=== PATIENT | female | born 1965 | race Caucasian/White ===

== ENCOUNTER 2021-04-26 14:45 | Inpatient (IN) | payer MEDICAID ==
[~2021-04-26] VITALS: Ht 165.1 cm; Wt 81.7 kg
[2021-04-26] MEDS ORDERED: methylPREDNISolone SOD SUCC 125 MG/2 ML VL IV ONE (15:00)
[2021-04-26] MEDS ORDERED: ACETAMINOPHEN 325 MG TAB PO ONE (15:00)
[2021-04-26 15:44] LABS: Basophils # (auto) 0 10 ^3/uL (0-0.2); Basophils % (auto) 0.2 % (0.0-2.0); Eosinophils # (auto) 0 10 ^3/uL (0-0.8); Hematocrit 42.2 % (36.0-46.0); Hemoglobin 13.7 g/dL (12.2-16.2); Lymphocytes # (auto) 1.1 10 ^3/uL (0.4-5.4); Mean Corpuscular Hemoglobin 28.2 pg (28.0-32.0); Mean Corpuscular Hgb Conc. 32.4 g/dL (32.0-36.0); Mean Corpuscular Volume 87.1 fL (80.0-100.0); Monocytes # (auto) 0.4 10 ^3/uL (0-1.3); Monocytes % (auto) 4.2 % (0.0-12.0); Neutrophils % (auto) 82.6 % (37.0-80.0); Nucleated Red Blood Cells % 0.1 %; Red Blood Cells 4.85 10^6/uL (4.0-5.20); Red Cell Distribution Width 15.8 % (11.8-14.3); White Blood Cell 8.5 10^3/uL (4.4-10.8)
[2021-04-26 15:52] LABS: Calcium 8.2 mg/dL (8.5-10.1)
[2021-04-26 16:01] LABS: BUN/Creatinine Ratio 15.8; Bilirubin, Total 1.3 mg/dL (0.2-1.0); CRP High Sensitivity 9.82 mg/dL (< 0.3); Total Protein 8.1 g/dL (6.4-8.2)
[2021-04-26 16:09] LABS: Potassium 2.7 mmol/L (3.5-5.1)
[2021-04-26] MEDS ORDERED: POTASSIUM CHL 20 Meq TABLET PO ONE (16:15)
[2021-04-26] MEDS ORDERED: POTASSIUM CHL 20MEQ/100ML 100 ML IV ONE (16:15)
[2021-04-26] MEDS ORDERED: ONDANSETRON HCL 4 MG/2 ML VIAL IV PRN (17:30)
[2021-04-26] MEDS ORDERED: cefTRIAXone 1GM/50ML D5W 50 ML IV ONE (17:30)
[2021-04-26] MEDS ORDERED: NITROGLYCERIN 0.4 MG SL TAB SL PRN (17:30)
[2021-04-26] MEDS ORDERED: hydrALAZINE HCL 20 MG/ML VL IV PRN (17:30)
[2021-04-26] MEDS ORDERED: ACETAMINOPHEN 500 MG TAB PO PRN (17:30)
[2021-04-26] MEDS ORDERED: DEXTROSE (50%) 50ML SYRG IV PRN (17:30)
[2021-04-26] MEDS ORDERED: DOCUSATE CALCIUM 240 MG CAP PO PRN (17:30)
[2021-04-26] MEDS ORDERED: MORPHINE SULFATE INJECTION 2 MG/ML SYRG IV PRN (17:30)
[2021-04-26] MEDS: InsuLIN REG 1unit/0.01ml Soln (100units/ml) SC SCH ×2 (20:20→23:12)
[2021-04-26] MEDS: ACCU-CHEK COMFORT CURVE STRIP VI SCH ×2 (20:28→23:12)
[2021-04-26 20:39] LABS: Calcium 8.6 mg/dL (8.5-10.1); Potassium 3.2 mmol/L (3.5-5.1)
[2021-04-26 20:42] LABS: BUN/Creatinine Ratio 16.4
[2021-04-26 22:00] VITALS: BP 119/74
[2021-04-26] MEDS: BUDESONIDE (INHALATION) 180 MCG IH IN SCH (22:00)
[2021-04-26 22:22] VITALS: BP 119/74
[2021-04-26] MEDS: methylPREDNISolone SOD SUCC 125 MG/2 ML VL IV SCH (23:11)
[2021-04-26] MEDS: ENOXAPARIN SOD 40 MG/0.4 ML SYRINGE SC SCH (23:11)
[2021-04-27] VITALS (7 sets, daily range): BP systolic 102–132; BP diastolic 65–88
[2021-04-27] MEDS ORDERED: PNEUMOCOCCAL VACC POLYS 25 MCG/0.5 ML VIAL IM ONE (01:15)
[2021-04-27] MEDS: ACCU-CHEK COMFORT CURVE STRIP VI SCH ×5 (04:51→19:58)
[2021-04-27] MEDS: InsuLIN REG 1unit/0.01ml Soln (100units/ml) SC SCH ×5 (04:52→20:01)
[2021-04-27 05:55] LABS: Basophils # (auto) 0 10 ^3/uL (0-0.2); Eosinophils # (auto) 0 10 ^3/uL (0-0.8); Hematocrit 41.6 % (36.0-46.0); Hemoglobin 13.8 g/dL (12.2-16.2); Lymphocytes # (auto) 1.3 10 ^3/uL (0.4-5.4); Lymphocytes % (auto) 13.5 % (10.0-50.0); Mean Corpuscular Hgb Conc. 33.1 g/dL (32.0-36.0); Mean Corpuscular Volume 87.6 fL (80.0-100.0); Monocytes # (auto) 0.2 10 ^3/uL (0-1.3); Monocytes % (auto) 1.8 % (0.0-12.0); Neutrophils # (auto) 7.9 10 ^3/uL (1.6-8.6); Neutrophils % (auto) 84.7 % (37.0-80.0); Nucleated Red Blood Cells % 0.2 %; Red Blood Cells 4.75 10^6/uL (4.0-5.20); Red Cell Distribution Width 16.2 % (11.8-14.3); White Blood Cell 9.3 10^3/uL (4.4-10.8)
[2021-04-27 05:59] LABS: INR 1.11 (0.9-1.15)
[2021-04-27 06:04] LABS: Albumin 2.9 g/dL (3.4-5.0); Calcium 8.9 mg/dL (8.5-10.1); Magnesium 2.8 mg/dL (1.6-2.6); Potassium 3.2 mmol/L (3.5-5.1)
[2021-04-27 06:17] LABS: BUN/Creatinine Ratio 18.8; Bilirubin, Total 1.1 mg/dL (0.2-1.0); Total Protein 8.5 g/dL (6.4-8.2)
[2021-04-27 06:19] LABS: Thyroid Stimulating Hormone 0.32 uIU/mL (0.358-3.74)
[2021-04-27] MEDS: ZINC SULFATE 220mg CAP or TAB PO SCH (09:06)
[2021-04-27] MEDS: methylPREDNISolone SOD SUCC 125 MG/2 ML VL IV SCH ×2 (09:06→22:12)
[2021-04-27] MEDS: ASCORBIC ACID 1,000 MG TAB PO SCH (09:07)
[2021-04-27] MEDS: PANTOPRAZOLE 40 MG TAB PO SCH (09:07)
[2021-04-27] MEDS: ENOXAPARIN SOD 40 MG/0.4 ML SYRINGE SC SCH ×2 (09:07→22:12)
[2021-04-27] MEDS: CHOLECALCIFEROL (VITD3) 2,000 UNIT CAP/TAB PO SCH (09:07)
[2021-04-27] MEDS: ALBUTEROL SULF HFA 90MCG INH 200DOSE IN PRN (10:12)
[2021-04-27] MEDS: BUDESONIDE (INHALATION) 180 MCG IH IN SCH ×2 (10:12→21:05)
[2021-04-27] MEDS ORDERED: REMDESIVIR PER PHARMACY 0 ML IV SCH (12:45)
[2021-04-27] MEDS ORDERED: cefTRIAXone 1GM/50ML D5W 50 ML IV ONE (13:00)
[2021-04-27] MEDS ORDERED: HYDROcodone-ACET 5/325MG TAB PO PRN (13:00)
[2021-04-27] MEDS ORDERED: AZITHROMYCIN 500MG/ 250ML 250 ML IV ONE (14:00)
[2021-04-27] MEDS ORDERED: REMDESIVIR 200 MG in NS 210ml LOADING DOSE ADULT IV ONE (15:00)
[2021-04-27 17:22] LABS: Urine Amorphous Crystal FEW /hpf (None Seen); Urine Bacteria FEW /hpf (None Seen); Urine Blood TRACE /uL (Negative); Urine Hyaline Cast FEW /lpf (0 - 2); Urine Mucus FEW (None Seen); Urine WBC 16 /hpf (0 - 5)
[2021-04-28] MEDS: InsuLIN REG 1unit/0.01ml Soln (100units/ml) SC SCH ×7 (00:05→23:58)
[2021-04-28] MEDS: ACCU-CHEK COMFORT CURVE STRIP VI SCH ×7 (03:32→23:58)
[2021-04-28 05:30] VITALS: BP 131/89
[2021-04-28 07:08] LABS: Potassium 3.4 mmol/L (3.5-5.1)
[2021-04-28 07:16] LABS: Albumin 2.5 g/dL (3.4-5.0); BUN/Creatinine Ratio 25.3; Calcium 8.9 mg/dL (8.5-10.1)
[2021-04-28 07:19] LABS: Bilirubin, Total 0.7 mg/dL (0.2-1.0); Total Protein 7.7 g/dL (6.4-8.2)
[2021-04-28] MEDS: ALBUTEROL SULF HFA 90MCG INH 200DOSE IN PRN ×2 (08:02→19:20)
[2021-04-28] MEDS: BUDESONIDE (INHALATION) 180 MCG IH IN SCH ×2 (08:02→19:19)
[2021-04-28 09:00] VITALS: BP 99/76
[2021-04-28] MEDS: cefTRIAXone 1GM/50ML D5W 50 ML IV SCH (09:00)
[2021-04-28] MEDS: ASCORBIC ACID 1,000 MG TAB PO SCH (09:38)
[2021-04-28] MEDS: methylPREDNISolone SOD SUCC 125 MG/2 ML VL IV SCH ×2 (09:38→22:27)
[2021-04-28] MEDS: CHOLECALCIFEROL (VITD3) 2,000 UNIT CAP/TAB PO SCH (09:38)
[2021-04-28] MEDS: ZINC SULFATE 220mg CAP or TAB PO SCH (09:38)
[2021-04-28] MEDS: AZITHROMYCIN 500MG/ 250ML 250 ML IV SCH (09:38)
[2021-04-28] MEDS: PANTOPRAZOLE 40 MG TAB PO SCH (09:38)
[2021-04-28] MEDS: ENOXAPARIN SOD 40 MG/0.4 ML SYRINGE SC SCH ×2 (09:39→22:27)
[2021-04-28 13:00] VITALS: BP 116/75
[2021-04-28] MEDS: REMDESIVIR 100mg 100 MG in SODIUM CHL 0.9% 230 ML IV SCH (15:34)
[2021-04-28 17:00] VITALS: BP 144/86
[2021-04-28 20:00] VITALS: BP 122/66
[2021-04-28 22:00] VITALS: BP 122/66
[2021-04-29] MEDS: ACCU-CHEK COMFORT CURVE STRIP VI SCH ×6 (03:59→23:58)
[2021-04-29] MEDS: InsuLIN REG 1unit/0.01ml Soln (100units/ml) SC SCH ×5 (04:01→19:56)
[2021-04-29 05:00] VITALS: BP 122/83
[2021-04-29] MEDS: ALBUTEROL SULF HFA 90MCG INH 200DOSE IN PRN ×2 (06:38→22:35)
[2021-04-29] MEDS: BUDESONIDE (INHALATION) 180 MCG IH IN SCH ×2 (06:38→22:35)
[2021-04-29] MEDS: cefTRIAXone 1GM/50ML D5W 50 ML IV SCH (08:20)
[2021-04-29] MEDS: methylPREDNISolone SOD SUCC 125 MG/2 ML VL IV SCH ×2 (08:21→22:08)
[2021-04-29] MEDS: ZINC SULFATE 220mg CAP or TAB PO SCH (08:21)
[2021-04-29] MEDS: PANTOPRAZOLE 40 MG TAB PO SCH (08:22)
[2021-04-29] MEDS: CHOLECALCIFEROL (VITD3) 2,000 UNIT CAP/TAB PO SCH (08:22)
[2021-04-29] MEDS: ENOXAPARIN SOD 40 MG/0.4 ML SYRINGE SC SCH ×2 (08:22→22:09)
[2021-04-29] MEDS: ASCORBIC ACID 1,000 MG TAB PO SCH (08:22)
[2021-04-29 09:00] VITALS: BP 132/81
[2021-04-29 09:36] LABS: Albumin 2.5 g/dL (3.4-5.0); Calcium 8.8 mg/dL (8.5-10.1)
[2021-04-29 09:52] LABS: BUN/Creatinine Ratio 28.6; Bilirubin, Total 0.8 mg/dL (0.2-1.0); Total Protein 7.5 g/dL (6.4-8.2)
[2021-04-29 09:56] LABS: Potassium 2.8 mmol/L (3.5-5.1)
[2021-04-29] MEDS ORDERED: POTASSIUM CHL 20 Meq TABLET PO ONE (10:00)
[2021-04-29] MEDS: AZITHROMYCIN 500MG/ 250ML 250 ML IV SCH (10:53)
[2021-04-29] MEDS: POTASSIUM CHL 20MEQ/100ML 100 ML IV SCH ×2 (12:46→15:00)
[2021-04-29 13:00] VITALS: BP 127/82
[2021-04-29] MEDS: REMDESIVIR 100mg 100 MG in SODIUM CHL 0.9% 230 ML IV SCH (15:52)
[2021-04-29 20:00] VITALS: BP 147/93
[2021-04-29 22:00] VITALS: BP 147/93
[2021-04-30] MEDS: ACCU-CHEK COMFORT CURVE STRIP VI SCH ×3 (04:00→12:00)
[2021-04-30] MEDS: InsuLIN REG 1unit/0.01ml Soln (100units/ml) SC SCH ×4 (04:07→12:00)
[2021-04-30 05:00] VITALS: BP 134/90
[2021-04-30 06:29] LABS: Potassium 3.1 mmol/L (3.5-5.1)
[2021-04-30 06:34] LABS: Albumin 2.3 g/dL (3.4-5.0); BUN/Creatinine Ratio 29.8; Calcium 8.5 mg/dL (8.5-10.1)
[2021-04-30 06:36] LABS: Bilirubin, Total 1.1 mg/dL (0.2-1.0)
[2021-04-30] MEDS: BUDESONIDE (INHALATION) 180 MCG IH IN SCH (06:43)
[2021-04-30] MEDS: ALBUTEROL SULF HFA 90MCG INH 200DOSE IN PRN (06:43)
[2021-04-30] MEDS: ZINC SULFATE 220mg CAP or TAB PO SCH (08:27)
[2021-04-30] MEDS: methylPREDNISolone SOD SUCC 125 MG/2 ML VL IV SCH (08:27)
[2021-04-30] MEDS: cefTRIAXone 1GM/50ML D5W 50 ML IV SCH (08:27)
[2021-04-30] MEDS: PANTOPRAZOLE 40 MG TAB PO SCH (08:28)
[2021-04-30] MEDS: ASCORBIC ACID 1,000 MG TAB PO SCH (08:28)
[2021-04-30] MEDS: CHOLECALCIFEROL (VITD3) 2,000 UNIT CAP/TAB PO SCH (08:28)
[2021-04-30] MEDS: ENOXAPARIN SOD 40 MG/0.4 ML SYRINGE SC SCH (08:29)
[2021-04-30 08:56] VITALS: BP 135/97
[2021-04-30] MEDS: AZITHROMYCIN 500MG/ 250ML 250 ML IV SCH (10:00)
== END 2021-04-30 12:17 | disposition left against medical advice (07) | DRG 137 ==
LOC: EDBD 14:45 → ER 14:45 → TELE-WESTW 17:17 → TELE-EAST 22:53
PROVIDERS: ADMIT Family Medicine; ATTEND Family Medicine
PROC: XW033E5 Introduction of Remdesivir Anti-infective into Peripheral Vein, Percutaneous Approach, New Technology Group 5 (ICD-10-PCS; principal; 2021-04-27)
DX: U07.1 COVID-19 (principal); J96.01 Acute respiratory failure with hypoxia; J12.82 Pneumonia due to coronavirus disease 2019; E87.6 Hypokalemia; E86.0 Dehydration; N28.9 Disorder of kidney and ureter, unspecified; R73.9 Hyperglycemia, unspecified; Z28.21 Immunization not carried out because of patient refusal
CPT/HCPCS: 36415; 71045; 80048; 80053; 81001; 82306; 82728; 82962; 83036; 83605; 83615; 83735; 84443; 85025; 85379; 85610; 86141; 87040; 87426; 93005; 94640; 96361; 96365; 96375; 99291; G0378; J0696; J1815; J3480

== ENCOUNTER 2024-01-17 18:04 | Emergency (ER) | payer MEDICAID, OTHER ==
[~2024-01-17] VITALS: Ht 157.5 cm; Wt 66.1 kg
[2024-01-17] MEDS: DexAMETHasone SOD PHOS 10MG/1ML VIAL INJ IM ONE (23:59)
[2024-01-18] MEDS: cloNIDine HCL 0.1 MG TAB PO ONE
[2024-01-18] MEDS ORDERED: CLON0.2T PO (00:31)
[2024-01-18 01:01] VITALS: BP 135/87; PULSE 85; RESP 18; TEMP 98.3; O2SAT 98
== END 2024-01-18 01:07 | disposition home or self-care (01) ==
LOC: ER 18:04
DX: R22.32 Localized swelling, mass and lump, left upper limb (principal); R03.0 Elevated blood-pressure reading, without diagnosis of hypertension
CPT/HCPCS: 73130; 96372; 99283; J1100

== ENCOUNTER 2024-01-21 10:31 | Emergency (ER) | payer OTHER ==
[~2024-01-21] VITALS: Ht 165.1 cm; Wt 85.8 kg
[~2024-01-21 10:31] MED LIST: CLON0.2T PO
[2024-01-21 10:53] VITALS: BP 163/94; PULSE 83; RESP 16; TEMP 98.6; O2SAT 96
[2024-01-21 11:29] LABS: Basophils # (auto) 0.1 10 ^3/uL (0-0.2); Basophils % (auto) 1.2 % (0.0-2.0); Eosinophils # (auto) 0.1 10 ^3/uL (0-0.8); Eosinophils % (auto) 0.8 % (0.0-7.0); Hematocrit 44.9 % (36.0-46.0); Hemoglobin 14.5 g/dL (12.2-16.2); Lymphocytes # (auto) 3.1 10 ^3/uL (0.4-5.4); Lymphocytes % (auto) 39.5 % (10.0-50.0); Mean Corpuscular Hemoglobin 28.2 pg (28.0-32.0); Mean Corpuscular Hgb Conc. 32.4 g/dL (32.0-36.0); Mean Corpuscular Volume 87.2 fL (80.0-100.0); Monocytes # (auto) 0.6 10 ^3/uL (0-1.3); Monocytes % (auto) 7.8 % (0.0-12.0); Neutrophils % (auto) 50.7 % (37.0-80.0); Nucleated Red Blood Cells % 0.1 %; Red Blood Cells 5.15 10^6/uL (4.0-5.20); Red Cell Distribution Width 15.5 % (11.8-14.3); White Blood Cell 7.9 10^3/uL (4.4-10.8)
[2024-01-21 11:40] LABS: Chloride 107 mmol/L (98-107); Potassium 3.1 mmol/L (3.5-5.1); Sodium 142 mmol/L (136-145)
[2024-01-21 11:41] LABS: Anion Gap 6 (5-15); Calcium 8.8 mg/dL (8.5-10.1); Carbon Dioxide 29 mmol/L (20-30)
[2024-01-21 11:46] LABS: BUN/Creatinine Ratio 10.8 (10.0-20.0); Blood Urea Nitrogen 10 mg/dL (9-23); Glucose 94 mg/dL (74-106)
[2024-01-21 12:14] LABS: Uric Acid 7.8 mg/dL (3.1-7.8)
[2024-01-21] MEDS ORDERED: METH4PAK PO (12:24)
[2024-01-21] MEDS ORDERED: NAPR-746 PO (12:24)
[2024-01-21] MEDS: methylPREDNISolone SOD SUCC 125 MG/2 ML VL IM ONE (12:50)
[2024-01-21] MEDS: POTASSIUM CHL 20 Meq TABLET PO ONE (12:50)
== END 2024-01-21 12:53 | disposition home or self-care (01) ==
LOC: ER 10:31
DX: M19.042 Primary osteoarthritis, left hand (principal); E87.6 Hypokalemia; Z79.899 Other long term (current) drug therapy
CPT/HCPCS: 36415; 80048; 84550; 85025; 96372; 99283; J2919

== ENCOUNTER 2024-04-01 08:12 | Emergency (ER) | payer OTHER ==
[~2024-04-01] VITALS: Ht 165.1 cm; Wt 82.0 kg
[~2024-04-01 08:12] MED LIST changes: +METH4PAK PO; +NAPR-746 PO
[2024-04-01 08:33] VITALS: BP 168/98; PULSE 90; RESP 16; TEMP 97.5; O2SAT 100
[2024-04-01] MEDS ORDERED: PRED20TA2 PO (08:36)
[2024-04-01] MEDS: methylPREDNISolone SOD SUCC 125 MG/2 ML VL IM ONE (08:42)
== END 2024-04-01 08:51 | disposition home or self-care (01) ==
LOC: ER 08:12
DX: M19.042 Primary osteoarthritis, left hand (principal); X50.1XXA Overexertion from prolonged static or awkward postures, initial encounter; Y93.89 Activity, other specified; Y92.89 Other specified places as the place of occurrence of the external cause; Y99.8 Other external cause status
CPT/HCPCS: 96372; 99283; J2919

== ENCOUNTER 2024-05-05 16:52 | Observation (INO) | payer OTHER ==
[~2024-05-05] VITALS: Ht 167.6 cm; Wt 74.0 kg
[~2024-05-05 16:52] MED LIST changes: +PRED20TA2 PO
[2024-05-05 19:17] LABS: Basophils # (auto) 0.1 10 ^3/uL (0-0.2); Basophils % (auto) 0.9 % (0.0-2.0); Eosinophils # (auto) 0 10 ^3/uL (0-0.8); Eosinophils % (auto) 0.2 % (0.0-7.0); Hematocrit 48.3 % (36.0-46.0); Lymphocytes # (auto) 2.7 10 ^3/uL (0.4-5.4); Lymphocytes % (auto) 26.8 % (10.0-50.0); Mean Corpuscular Hemoglobin 29.9 pg (28.0-32.0); Mean Corpuscular Hgb Conc. 33.1 g/dL (32.0-36.0); Mean Corpuscular Volume 90.4 fL (80.0-100.0); Monocytes # (auto) 0.7 10 ^3/uL (0-1.3); Monocytes % (auto) 7.4 % (0.0-12.0); Neutrophils # (auto) 6.4 10 ^3/uL (1.6-8.6); Neutrophils % (auto) 64.7 % (37.0-80.0); Nucleated Red Blood Cells % 0.1 %; Platelet Count (auto) 401 10^3/uL (140-450); Red Blood Cells 5.34 10^6/uL (4.0-5.20); Red Cell Distribution Width 16.6 % (11.8-14.3); White Blood Cell 9.9 10^3/uL (4.4-10.8)
[2024-05-05 19:38] LABS: Alanine Aminotransferase 11 U/L (7-40); Albumin 4.8 g/dL (3.2-4.8); Alkaline Phosphatase 194 U/L (46-116); Anion Gap 12 (5-15); Aspartate Aminotransferase 49 U/L (13-40); BUN/Creatinine Ratio 13.6 (10.0-20.0); Bilirubin, Total 0.8 mg/dL (0.2-1.0); Blood Urea Nitrogen 23 mg/dL (9-23); Calcium 9.7 mg/dL (8.7-10.4); Carbon Dioxide 22 mmol/L (20-31); Chloride 105 mmol/L (98-107); Glucose 88 mg/dL (74-106); Lipase 79 U/L (12-53); Potassium 3.5 mmol/L (3.5-5.1); Sodium 139 mmol/L (136-145); Total Protein 7.7 g/dL (5.7-8.2)
[2024-05-05] MEDS ORDERED: MORPHINE SULFATE INJ 2 MG/ml SYRG IV PRN ×2 (21:15)
[2024-05-05] MEDS: ONDANSETRON HCL 4 MG/2 ML VIAL IV ONE (21:15)
[2024-05-05] MEDS: SODIUM CHLORIDE 0.9% 1,000 ML IV SCH (21:15)
[2024-05-05] MEDS ORDERED: hydrALAZINE HCL 20 MG/ML VL IV PRN (21:15)
[2024-05-05] MEDS ORDERED: ONDANSETRON HCL 4 MG/2 ML VIAL IV PRN (21:15)
[2024-05-05] MEDS ORDERED: NITROGLYCERIN 0.4 MG SL TAB SL PRN (21:15)
[2024-05-05 21:31] LABS: Lactic Acid w/Reflex 2.2 mmol/L (0.4-2.0)
[2024-05-06] MEDS: MORPHINE SULFATE 4 MG/ML SYR/VIAL IV ONE (02:07)
[2024-05-06] MEDS: ONDANSETRON HCL 4 MG/2 ML VIAL IV ONE (02:08)
[2024-05-06 03:39] VITALS: PULSE 89; RESP 24; O2SAT 88
[2024-05-06 03:45] LABS: Basophils # (auto) 0.1 10 ^3/uL (0-0.2); Basophils % (auto) 0.6 % (0.0-2.0); Eosinophils # (auto) 0 10 ^3/uL (0-0.8); Eosinophils % (auto) 0.3 % (0.0-7.0); Hematocrit 44.7 % (36.0-46.0); Lymphocytes # (auto) 2.2 10 ^3/uL (0.4-5.4); Lymphocytes % (auto) 23.9 % (10.0-50.0); Mean Corpuscular Hemoglobin 30.3 pg (28.0-32.0); Mean Corpuscular Hgb Conc. 33.6 g/dL (32.0-36.0); Mean Corpuscular Volume 90.2 fL (80.0-100.0); Monocytes # (auto) 0.8 10 ^3/uL (0-1.3); Monocytes % (auto) 8.7 % (0.0-12.0); Neutrophils # (auto) 6.1 10 ^3/uL (1.6-8.6); Neutrophils % (auto) 66.5 % (37.0-80.0); Platelet Count (auto) 345 10^3/uL (140-450); Red Blood Cells 4.95 10^6/uL (4.0-5.20); Red Cell Distribution Width 16.9 % (11.8-14.3); White Blood Cell 9.1 10^3/uL (4.4-10.8)
[2024-05-06 04:01] LABS: Alanine Aminotransferase 11 U/L (7-40); Albumin 4.3 g/dL (3.2-4.8); Alkaline Phosphatase 173 U/L (46-116); Anion Gap 13 (5-15); Aspartate Aminotransferase 42 U/L (13-40); BUN/Creatinine Ratio 15.8 (10.0-20.0); Bilirubin, Total 1.2 mg/dL (0.2-1.0); Blood Urea Nitrogen 24 mg/dL (9-23); Calcium 9.4 mg/dL (8.7-10.4); Carbon Dioxide 20 mmol/L (20-31); Chloride 107 mmol/L (98-107); Glucose 84 mg/dL (74-106); Potassium 3.3 mmol/L (3.5-5.1); Sodium 140 mmol/L (136-145)
[2024-05-06 07:20] VITALS: PULSE 94; RESP 12; O2SAT 95
[2024-05-06 07:56] LABS: Urine Bacteria None Seen /hpf (None Seen)
[2024-05-06 08:09] LABS: Urine Blood 3+ /uL (Negative); Urine Clarity Turbid (Clear); Urine Color Yellow (Yellow); Urine Mucus FEW (None Seen); Urine Protein, UAD 1+ (Negative); Urine Specific Gravity 1.028 (1.001-1.035); Urine Urobilinogen 4 mg/dL (Negative); Urine WBC 159 /hpf (0 - 5); Urine pH 5.5 (5.0-9.0)
[2024-05-06] MEDS: POTASSIUM CHL 20MEQ/100ML 100 ML IV ONE (08:23)
[2024-05-06] MEDS: ENOXAPARIN SOD 40 MG/0.4 ML SYRINGE SC SCH (10:21)
[2024-05-06 11:14] LABS: INR 1.07 (0.9-1.15); Prothrombin Time 11.3 sec (9.3-11.8)
[2024-05-06] MEDS: PANTOPRAZOLE 40 MG/10 ML VIAL INJ IV SCH (11:43)
[2024-05-06 12:08] VITALS: BP 142/77; PULSE 92; RESP 16; TEMP 98.2; O2SAT 95
[2024-05-06 16:32] VITALS: BP 125/80; PULSE 98; RESP 20; TEMP 97.8; O2SAT 94
[2024-05-06 20:00] VITALS: PULSE 97; RESP 20; O2SAT 95
[2024-05-06 21:00] VITALS: BP 142/78; PULSE 95; RESP 20; TEMP 97.8; O2SAT 98
[2024-05-07 01:00] VITALS: BP 124/79; PULSE 97; RESP 20; TEMP 97.7; O2SAT 95
[2024-05-07 05:00] VITALS: BP 119/70; PULSE 96; RESP 18; TEMP 97.5; O2SAT 98
[2024-05-07 07:04] LABS: Basophils # (auto) 0 10 ^3/uL (0-0.2); Basophils % (auto) 0.4 % (0.0-2.0); Eosinophils # (auto) 0 10 ^3/uL (0-0.8); Eosinophils % (auto) 0.3 % (0.0-7.0); Hematocrit 43.2 % (36.0-46.0); Hemoglobin 14.4 g/dL (12.2-16.2); Lymphocytes # (auto) 2.2 10 ^3/uL (0.4-5.4); Lymphocytes % (auto) 26.5 % (10.0-50.0); Mean Corpuscular Hemoglobin 30.3 pg (28.0-32.0); Mean Corpuscular Hgb Conc. 33.3 g/dL (32.0-36.0); Mean Corpuscular Volume 91.1 fL (80.0-100.0); Monocytes # (auto) 0.7 10 ^3/uL (0-1.3); Monocytes % (auto) 8.3 % (0.0-12.0); Neutrophils # (auto) 5.3 10 ^3/uL (1.6-8.6); Neutrophils % (auto) 64.5 % (37.0-80.0); Nucleated Red Blood Cells % 0.1 %; Platelet Count (auto) 339 10^3/uL (140-450); Red Blood Cells 4.75 10^6/uL (4.0-5.20); Red Cell Distribution Width 16.7 % (11.8-14.3); White Blood Cell 8.2 10^3/uL (4.4-10.8)
[2024-05-07 07:07] LABS: Anion Gap 19 (5-15); Calcium 9.6 mg/dL (8.7-10.4); Carbon Dioxide 19 mmol/L (20-31); Chloride 106 mmol/L (98-107); Potassium 3.6 mmol/L (3.5-5.1); Sodium 144 mmol/L (136-145)
[2024-05-07 07:13] LABS: BUN/Creatinine Ratio 15.4 (10.0-20.0); Blood Urea Nitrogen 24 mg/dL (9-23); Glucose 56 mg/dL (74-106)
[2024-05-07 07:30] VITALS: PULSE 97; RESP 20; O2SAT 98
[2024-05-07 09:00] VITALS: BP 150/107; PULSE 95; RESP 18; TEMP 97.8; O2SAT 95
== END 2024-05-07 08:56 | disposition left against medical advice (07) ==
LOC: EDBD 16:52 → ER 16:52 → OVERFLOW 21:13 → WEST WING 05-06 11:01
PROVIDERS: ADMIT Hospitalist; ATTEND Student in an Organized Health Care Education/Training Program
DX: N63.20 Unspecified lump in the left breast, unspecified quadrant (principal); C50.912 Malignant neoplasm of unspecified site of left female breast; N17.9 Acute kidney failure, unspecified; M19.042 Primary osteoarthritis, left hand; K56.609 Unspecified intestinal obstruction, unspecified as to partial versus complete obstruction; D84.9 Immunodeficiency, unspecified; R11.2 Nausea with vomiting, unspecified; K56.699 Other intestinal obstruction unspecified as to partial versus complete obstruction; Z79.899 Other long term (current) drug therapy; Z98.890 Other specified postprocedural states
CPT/HCPCS: 36415; 74176; 76642; 76942; 80048; 80053; 81001; 83605; 83690; 85025; 85610; 85730; 88305; 88342; 96361; 96372; 96374; 99284; A4648; G0378; J1650; J2470; J3480; J7030

== ENCOUNTER 2024-05-12 16:21 | Inpatient (IN) | payer OTHER ==
[~2024-05-12] VITALS: Ht 175.3 cm; Wt 74.1 kg
[2024-05-12 17:48] LABS: Basophils # (auto) 0 10 ^3/uL (0-0.2); Basophils % (auto) 0.4 % (0.0-2.0); Eosinophils # (auto) 0 10 ^3/uL (0-0.8); Eosinophils % (auto) 0.2 % (0.0-7.0); Hematocrit 44.5 % (36.0-46.0); Lymphocytes # (auto) 1.6 10 ^3/uL (0.4-5.4); Lymphocytes % (auto) 19.4 % (10.0-50.0); Mean Corpuscular Hemoglobin 30.2 pg (28.0-32.0); Mean Corpuscular Hgb Conc. 33.7 g/dL (32.0-36.0); Mean Corpuscular Volume 89.4 fL (80.0-100.0); Monocytes # (auto) 0.7 10 ^3/uL (0-1.3); Monocytes % (auto) 8.9 % (0.0-12.0); Neutrophils # (auto) 5.8 10 ^3/uL (1.6-8.6); Neutrophils % (auto) 71.1 % (37.0-80.0); Nucleated Red Blood Cells % 0.1 %; Platelet Count (auto) 374 10^3/uL (140-450); Red Blood Cells 4.98 10^6/uL (4.0-5.20); Red Cell Distribution Width 16.2 % (11.8-14.3); White Blood Cell 8.2 10^3/uL (4.4-10.8)
[2024-05-12 18:05] LABS: Alanine Aminotransferase 62 U/L (7-40); Albumin 4.6 g/dL (3.2-4.8); Alkaline Phosphatase 241 U/L (46-116); Anion Gap 18 (5-15); Aspartate Aminotransferase 85 U/L (13-40); BUN/Creatinine Ratio 15.3 (10.0-20.0); Bilirubin, Total 1.5 mg/dL (0.2-1.0); Blood Urea Nitrogen 26 mg/dL (9-23); Calcium 9.9 mg/dL (8.7-10.4); Carbon Dioxide 18 mmol/L (20-31); Chloride 101 mmol/L (98-107); Glucose 100 mg/dL (74-106); Lipase 111 U/L (12-53); Potassium 3.4 mmol/L (3.5-5.1); Sodium 137 mmol/L (136-145); Total Protein 7.5 g/dL (5.7-8.2)
[2024-05-12] MEDS: SODIUM CHLORIDE 0.9% 500 ML IV ONE (19:59)
[2024-05-12] MEDS: ONDANSETRON HCL 4 MG/2 ML VIAL IV ONE (20:24)
[2024-05-12] MEDS: MORPHINE SULFATE 4 MG/ML SYR/VIAL IV ONE (20:25)
[2024-05-12] MEDS ORDERED: NITROGLYCERIN 0.4 MG SL TAB SL PRN (21:45)
[2024-05-12] MEDS: SOD CHL 0.45% 1,000 ML IV ONE (23:44)
[2024-05-12] MEDS: metroNIDAZOLE 500MG/100ML 100 ML IV SCH (23:45)
[2024-05-13] VITALS: PULSE 84; RESP 18; O2SAT 96
[2024-05-13] MEDS: CIPROFLOXACIN 400MG/200ML 200 ML IV SCH (00:33)
[2024-05-13] MEDS ORDERED: MORPHINE SULFATE INJ 2 MG/ml SYRG IV PRN (01:15)
[2024-05-13] MEDS: MORPHINE SULFATE INJ 2 MG/ml SYRG IV PRN (04:36)
[2024-05-13 06:19] LABS: Alanine Aminotransferase 50 U/L (7-40); Alkaline Phosphatase 209 U/L (46-116); Anion Gap 16 (5-15); BUN/Creatinine Ratio 15.5 (10.0-20.0); Blood Urea Nitrogen 26 mg/dL (9-23); Calcium 9.1 mg/dL (8.7-10.4); Carbon Dioxide 20 mmol/L (20-31); Chloride 103 mmol/L (98-107); Glucose 76 mg/dL (74-106); Potassium 3.5 mmol/L (3.5-5.1); Sodium 139 mmol/L (136-145)
[2024-05-13 06:20] LABS: Aspartate Aminotransferase 62 U/L (13-40); Bilirubin, Total 1.3 mg/dL (0.2-1.0); Total Protein 6.6 g/dL (5.7-8.2)
[2024-05-13 06:21] LABS: Basophils # (auto) 0 10 ^3/uL (0-0.2); Basophils % (auto) 0.3 % (0.0-2.0); Eosinophils # (auto) 0 10 ^3/uL (0-0.8); Eosinophils % (auto) 0.2 % (0.0-7.0); Hematocrit 41.8 % (36.0-46.0); Lymphocytes # (auto) 1.8 10 ^3/uL (0.4-5.4); Lymphocytes % (auto) 24.5 % (10.0-50.0); Mean Corpuscular Hemoglobin 30.5 pg (28.0-32.0); Mean Corpuscular Hgb Conc. 33.6 g/dL (32.0-36.0); Mean Corpuscular Volume 90.9 fL (80.0-100.0); Monocytes # (auto) 0.9 10 ^3/uL (0-1.3); Monocytes % (auto) 11.8 % (0.0-12.0); Neutrophils # (auto) 4.8 10 ^3/uL (1.6-8.6); Neutrophils % (auto) 63.2 % (37.0-80.0); Platelet Count (auto) 282 10^3/uL (140-450); Red Cell Distribution Width 16.4 % (11.8-14.3); White Blood Cell 7.5 10^3/uL (4.4-10.8)
[2024-05-13 07:30] VITALS: PULSE 90; RESP 12; O2SAT 96
[2024-05-13] MEDS: levoFLOXacin 250MG 50 ML IV SCH (11:30)
[2024-05-13 13:00] VITALS: BP 120/80; PULSE 83; RESP 16; TEMP 98.4; O2SAT 98
[2024-05-13 13:51] VITALS: BP 120/80; PULSE 91; RESP 16; TEMP 98.4; O2SAT 94
[2024-05-13] MEDS: GASTROGRAFIN 120 ML SOL ONE (14:29)
[2024-05-13 17:00] VITALS: BP 122/78; PULSE 97; RESP 16; TEMP 98.4; O2SAT 99
[2024-05-13 21:00] VITALS: BP 132/79; PULSE 92; RESP 17; TEMP 97.3; O2SAT 98
[2024-05-14 05:00] VITALS: BP 125/82; PULSE 93; RESP 16; TEMP 97.6; O2SAT 97
[2024-05-14 08:10] VITALS: PULSE 91
[2024-05-14 09:00] VITALS: BP 140/73; PULSE 97; RESP 16; TEMP 97.4; O2SAT 98
[2024-05-14 12:42] VITALS: BP 127/85; PULSE 91; RESP 14; TEMP 98.3; O2SAT 98
[2024-05-14] MEDS: SODIUM CHLORIDE 0.9% 1,000 ML IV SCH (13:01)
[2024-05-14] MEDS: POTASSIUM CHL 20MEQ/100ML 100 ML IV SCH (13:02)
[2024-05-14 14:38] LABS: Magnesium 2.1 mg/dL (1.6-2.6)
[2024-05-14 14:40] LABS: Phosphorus 3.3 mg/dL (2.4-5.1)
[2024-05-14 16:01] LABS: Protein, Urine 134.9 mg/dL (1-14)
[2024-05-14 16:04] LABS: Creatinine, Urine 119.25 mg/dL (30.0-125.0); Urine Protein/Creatinine Ratio 1.13
[2024-05-14 16:12] LABS: Urine Bacteria FEW /hpf (None Seen); Urine Blood 2+ /uL (Negative); Urine Clarity Turbid (Clear); Urine Mucus FEW (None Seen); Urine Protein, UAD 1+ (Negative); Urine Specific Gravity 1.027 (1.001-1.035); Urine Urobilinogen 3 mg/dL (Negative); Urine WBC 52 /hpf (0 - 5); Urine pH 5.5 (5.0-9.0)
[2024-05-14 17:00] VITALS: BP 130/96; PULSE 95; RESP 16; TEMP 98.3; O2SAT 98
[2024-05-14 21:00] VITALS: BP 131/86; PULSE 92; RESP 18; TEMP 97.5; O2SAT 98
[2024-05-15 01:00] VITALS: BP 131/74; PULSE 96; RESP 18; TEMP 98; O2SAT 98
[2024-05-15 05:00] VITALS: BP 138/82; PULSE 98; RESP 18; TEMP 97.6; O2SAT 96
[2024-05-15 09:00] VITALS: BP 141/92; PULSE 89; RESP 17; TEMP 97.9; O2SAT 99
[2024-05-15 11:21] VITALS: TEMP 36.6
== END 2024-05-15 11:42 | disposition home or self-care (01) | DRG 247 ==
LOC: ER 16:21 → EDBD 16:21 → OVERFLOW 21:49 → WEST WING 05-13 10:54
PROVIDERS: ADMIT Internal Medicine; ATTEND Student in an Organized Health Care Education/Training Program
PROC: 0D9670Z Drainage of Stomach with Drainage Device, Via Natural or Artificial Opening (ICD-10-PCS; principal; 2024-05-13)
DX: K56.609 Unspecified intestinal obstruction, unspecified as to partial versus complete obstruction (principal); N17.0 Acute kidney failure with tubular necrosis; N13.30 Unspecified hydronephrosis; C50.912 Malignant neoplasm of unspecified site of left female breast; E86.0 Dehydration; E87.6 Hypokalemia; K29.70 Gastritis, unspecified, without bleeding
CPT/HCPCS: 36415; 71045; 74176; 74250; 76775; 80053; 81001; 82306; 82570; 83690; 83735; 83935; 83970; 84100; 84156; 84300; 85025; G0378; J2405; J3480; J3490

== ENCOUNTER 2024-05-25 12:02 | Inpatient (IN) | payer OTHER ==
[~2024-05-25] VITALS: Ht 165.1 cm; Wt 72.1 kg
[2024-05-25 12:50] LABS: Basophils # (auto) 0 10 ^3/uL (0-0.2); Basophils % (auto) 0.2 % (0.0-2.0); Eosinophils # (auto) 0 10 ^3/uL (0-0.8); Eosinophils % (auto) 0.2 % (0.0-7.0); Hematocrit 44.9 % (36.0-46.0); Lymphocytes # (auto) 2.4 10 ^3/uL (0.4-5.4); Lymphocytes % (auto) 26.3 % (10.0-50.0); Mean Corpuscular Hgb Conc. 33.3 g/dL (32.0-36.0); Mean Corpuscular Volume 90.1 fL (80.0-100.0); Monocytes # (auto) 0.8 10 ^3/uL (0-1.3); Monocytes % (auto) 8.8 % (0.0-12.0); Neutrophils % (auto) 64.5 % (37.0-80.0); Nucleated Red Blood Cells % 0.1 %; Platelet Count (auto) 346 10^3/uL (140-450); Red Blood Cells 4.99 10^6/uL (4.0-5.20); Red Cell Distribution Width 16.3 % (11.8-14.3); White Blood Cell 9.3 10^3/uL (4.4-10.8)
[2024-05-25 12:51] VITALS: PULSE 118; RESP 16; O2SAT 96
[2024-05-25 13:18] LABS: Lactic Acid w/Reflex 3.2 mmol/L (0.4-2.0)
[2024-05-25] MEDS: SODIUM CHLORIDE 0.9% 1,000 ML IV ONE ×2 (13:39→16:20)
[2024-05-25] MEDS: ONDANSETRON HCL 4 MG/2 ML VIAL IV ONE (13:45)
[2024-05-25] MEDS: fentaNYL CITRATE 100 MCG/2 ML VL IV ONE (13:48)
[2024-05-25 14:11] LABS: Alanine Aminotransferase 14 U/L (7-40); Alkaline Phosphatase 168 U/L (46-116); Anion Gap 14 (5-15); Aspartate Aminotransferase 53 U/L (13-40); BUN/Creatinine Ratio 26.6 (10.0-20.0); Bilirubin, Total 0.9 mg/dL (0.2-1.0); Blood Urea Nitrogen 49 mg/dL (9-23); Calcium 8.9 mg/dL (8.7-10.4); Carbon Dioxide 21 mmol/L (20-31); Chloride 101 mmol/L (98-107); Glucose 108 mg/dL (74-106); Lipase 137 U/L (12-53); Magnesium 1.8 mg/dL (1.6-2.6); Potassium 3.3 mmol/L (3.5-5.1); Sodium 136 mmol/L (136-145); Total Protein 6.4 g/dL (5.7-8.2)
[2024-05-25] MEDS: LIDOCAINE VISCOUS 2% 15ML UD PO ONE (16:20)
[2024-05-25] MEDS: MAALOX PLUS or MAALOX 30 ML PO ONE (16:21)
[2024-05-25] MEDS ORDERED: MORPHINE SULFATE INJ 2 MG/ml SYRG IV PRN (19:15)
[2024-05-25] MEDS ORDERED: ACETAMINOPHEN 325 MG TAB PO PRN (19:15)
[2024-05-25] MEDS ORDERED: NITROGLYCERIN 0.4 MG SL TAB SL PRN (19:15)
[2024-05-25] MEDS ORDERED: TEMAZEPAM 15 MG CAP PO PRN (19:15)
[2024-05-25] MEDS ORDERED: HYDROcodone-ACET 5/325MG TAB PO PRN (19:15)
[2024-05-25] MEDS: SODIUM CHLORIDE 0.9% 1,000 ML IV SCH (19:15)
[2024-05-25 20:17] VITALS: PULSE 103; RESP 15; O2SAT 98
[2024-05-25] MEDS: MORPHINE SULFATE INJ 2 MG/ml SYRG IV PRN (20:25)
[2024-05-25 20:28] LABS: Lactic Acid w/Reflex 2.4 mmol/L (0.4-2.0)
[2024-05-25 20:37] VITALS: PULSE 98; RESP 18; O2SAT 98
[2024-05-25 21:00] VITALS: BP 108/69; PULSE 98; RESP 19; TEMP 97.7; O2SAT 99
[2024-05-25] MEDS: FAMOTIDINE (10MG/ML) 2ML VL IV ONE (21:29)
[2024-05-25] MEDS: SUCRALFATE 1 GM/10 ML ORAL SUSP PO SCH (21:29)
[2024-05-25] MEDS: HYDROmorphone HCL 2 MG/ML VL/or syr IV PRN (23:28)
[2024-05-26] VITALS (7 sets, daily range): BP systolic 113–129; BP diastolic 69–84; PULSE 85–102; RESP 15–20; TEMP 97.2–98; O2SAT 96–99
[2024-05-26 10:43] LABS: Basophils # (auto) 0 10 ^3/uL (0-0.2); Basophils % (auto) 0.3 % (0.0-2.0); Eosinophils # (auto) 0 10 ^3/uL (0-0.8); Eosinophils % (auto) 0.1 % (0.0-7.0); Hematocrit 38.9 % (36.0-46.0); Hemoglobin 12.8 g/dL (12.2-16.2); Lymphocytes # (auto) 1.1 10 ^3/uL (0.4-5.4); Mean Corpuscular Hemoglobin 29.8 pg (28.0-32.0); Mean Corpuscular Volume 90.3 fL (80.0-100.0); Monocytes # (auto) 0.6 10 ^3/uL (0-1.3); Monocytes % (auto) 10.4 % (0.0-12.0); Neutrophils # (auto) 4.1 10 ^3/uL (1.6-8.6); Neutrophils % (auto) 70.2 % (37.0-80.0); Nucleated Red Blood Cells % 0.1 %; Platelet Count (auto) 256 10^3/uL (140-450); Red Cell Distribution Width 16.1 % (11.8-14.3); White Blood Cell 5.9 10^3/uL (4.4-10.8)
[2024-05-26 11:03] LABS: Alanine Aminotransferase 16 U/L (7-40); Albumin 3.5 g/dL (3.2-4.8); Alkaline Phosphatase 167 U/L (46-116); Anion Gap 11 (5-15); Aspartate Aminotransferase 54 U/L (13-40); Blood Urea Nitrogen 45 mg/dL (9-23); Calcium 8.4 mg/dL (8.7-10.4); Carbon Dioxide 22 mmol/L (20-31); Chloride 108 mmol/L (98-107); Glucose 81 mg/dL (74-106); Potassium 3.6 mmol/L (3.5-5.1); Sodium 141 mmol/L (136-145)
[2024-05-26 11:04] LABS: Bilirubin, Total 0.6 mg/dL (0.2-1.0); Total Protein 5.8 g/dL (5.7-8.2)
[2024-05-26 12:46] LABS: Lactic Acid w/Reflex 2.1 mmol/L (0.4-2.0)
[2024-05-26 20:35] LABS: Urine Bacteria FEW /hpf (None Seen); Urine Blood 3+ /uL (Negative); Urine Clarity Turbid (Clear); Urine Color Yellow (Yellow); Urine Protein, UAD 1+ (Negative); Urine Specific Gravity 1.023 (1.001-1.035); Urine Urobilinogen Normal (Negative); Urine WBC 117 /hpf (0 - 5); Urine pH 5.5 (5.0-9.0)
[2024-05-27] VITALS (8 sets, daily range): BP systolic 109–123; BP diastolic 65–75; PULSE 118–144; RESP 16–19; TEMP 97.8–98.2; O2SAT 92–98
[2024-05-27] MEDS: METOCLOPRAMIDE HCL 5MG/ml INJ 2ml VIAL IV PRN (09:01)
[2024-05-27] MEDS ORDERED: KETAMINE 50mg/ML 1ml syringe ONE (10:42)
[2024-05-27] MEDS ORDERED: MIDAZOLAM HCL 2MG/2ML 2ml VIAL (1mg/ml) ONE (10:43)
[2024-05-27] MEDS ORDERED: PROPOFOL 10 MG/ML 20 ML IV ONE (11:13)
[2024-05-27] MEDS: cefTRIAXone 1GM/50ML D5W 50 ML IV ONE (11:57)
[2024-05-27] MEDS: ONDANSETRON HCL 4 MG/2 ML VIAL IV ONE (11:59)
[2024-05-27] MEDS: SUCRALFATE 1 GM/10 ML ORAL SUSP GT SCH (12:18)
[2024-05-27] MEDS: POLYETHYLENE GLYCOL 17 GM PWDR PO PRN (12:27)
[2024-05-27] MEDS: METOCLOPRAMIDE HCL 5MG/ml INJ 2ml VIAL IV SCH (15:00)
[2024-05-27] MEDS: LACTATED RINGER'S 1,000 ML IV SCH (15:19)
[2024-05-27] MEDS: SODIUM CHLORIDE 0.9% 1,000 ML IV ONE (18:09)
[2024-05-27] MEDS ORDERED: METOPROLOL TARTRATE 1MG/1ML-5ML VIAL IV PRN (19:00)
[2024-05-27 19:36] LABS: INR 1.18 (0.9-1.15); Prothrombin Time 12.4 sec (9.3-11.8)
[2024-05-27] MEDS: PANTOPRAZOLE 40 MG/10 ML VIAL INJ IV SCH (22:05)
[2024-05-27] MEDS: CEFEPIME 2GM/50ML NS 50 ML IV SCH (22:07)
[2024-05-28] VITALS (7 sets, daily range): BP systolic 102–135; BP diastolic 66–84; PULSE 126–149; RESP 16–22; TEMP 97.6–98.2; O2SAT 91–97
[2024-05-28] MEDS: GASTROGRAFIN 120 ML SOL ONE (08:16)
[2024-05-28] MEDS ORDERED: cefTRIAXone 1GM/50ML D5W 50 ML IV SCH (09:00)
[2024-05-28 13:07] LABS: Basophils # (auto) 0 10 ^3/uL (0-0.2); Basophils % (auto) 0.1 % (0.0-2.0); Eosinophils # (auto) 0 10 ^3/uL (0-0.8); Hematocrit 37.5 % (36.0-46.0); Hemoglobin 12.3 g/dL (12.2-16.2); Lymphocytes # (auto) 0.9 10 ^3/uL (0.4-5.4); Lymphocytes % (auto) 10.3 % (10.0-50.0); Mean Corpuscular Hemoglobin 29.9 pg (28.0-32.0); Mean Corpuscular Hgb Conc. 32.8 g/dL (32.0-36.0); Monocytes # (auto) 0.3 10 ^3/uL (0-1.3); Monocytes % (auto) 3.8 % (0.0-12.0); Neutrophils # (auto) 7.2 10 ^3/uL (1.6-8.6); Neutrophils % (auto) 85.8 % (37.0-80.0); Platelet Count (auto) 230 10^3/uL (140-450); Red Blood Cells 4.13 10^6/uL (4.0-5.20); Red Cell Distribution Width 16.4 % (11.8-14.3); White Blood Cell 8.3 10^3/uL (4.4-10.8)
[2024-05-28 13:26] LABS: Alanine Aminotransferase 12 U/L (7-40); Albumin 3.2 g/dL (3.2-4.8); Alkaline Phosphatase 152 U/L (46-116); Anion Gap 16 (5-15); Aspartate Aminotransferase 40 U/L (13-40); BUN/Creatinine Ratio 25.3 (10.0-20.0); Blood Urea Nitrogen 46 mg/dL (9-23); Calcium 8.6 mg/dL (8.7-10.4); Carbon Dioxide 16 mmol/L (20-31); Chloride 115 mmol/L (98-107); Glucose 116 mg/dL (74-106); Potassium 3.8 mmol/L (3.5-5.1)
[2024-05-28 13:27] LABS: Bilirubin, Total 0.7 mg/dL (0.2-1.0); Total Protein 5.6 g/dL (5.7-8.2)
[2024-05-28 13:30] LABS: Sodium 147 mmol/L (136-145)
[2024-05-28] MEDS ORDERED: METOCLOPRAMIDE HCL 5MG/ml INJ 2ml VIAL IV PRN (18:00)
[2024-05-29] VITALS (8 sets, daily range): BP systolic 112–148; BP diastolic 75–92; PULSE 118–135; RESP 18–24; TEMP 97.5–98.4; O2SAT 92–98
[2024-05-29] MEDS: LACTATED RINGER'S 1,000 ML IV ONE (09:54)
[2024-05-29] MEDS: SOD CHL 0.45% 1,000 ML IV SCH (12:44)
[2024-05-29] MEDS: SUCRALFATE 1 GM/10 ML ORAL SUSP GT SCH (22:00)
[2024-05-29] MEDS: SODIUM BICARB 8.4% 50Meq/50ml SYR INJ ONE ×2 (23:08→23:13)
[2024-05-29] MEDS: SODIUM BICARB 50mEq/50ml Vial 75 ML in SOD CHL 0.45% 1,000 ML IV ONE (23:12)
[2024-05-30] VITALS (8 sets, daily range): BP systolic 129–148; BP diastolic 83–98; PULSE 110–124; RESP 19–26; TEMP 97.7–98.3; O2SAT 92–95
[2024-05-30] MEDS: SODIUM BICARB 8.4% 50Meq/50ml SYR Vial IV ONE (01:37)
[2024-05-30] MEDS ORDERED: LABETALOL HCL 20 MG/4 ML VL IV PRN ×2 (07:30→09:00)
[2024-05-30 07:32] LABS: Anion Gap 16 (5-15); Carbon Dioxide 18 mmol/L (20-31); Chloride 117 mmol/L (98-107); Potassium 3.1 mmol/L (3.5-5.1); Sodium 151 mmol/L (136-145)
[2024-05-30 07:38] LABS: BUN/Creatinine Ratio 27.7 (10.0-20.0); Blood Urea Nitrogen 44 mg/dL (9-23); Glucose 58 mg/dL (74-106)
[2024-05-30] MEDS: METOPROLOL TARTRATE 1MG/1ML-5ML VIAL IV ONE (08:02)
[2024-05-30] MEDS: METOPROLOL TARTRATE 1MG/1ML-5ML VIAL IV PRN (15:35)
[2024-05-30] MEDS: MEROPENEM 1GM IVPB 50 ML IV SCH (17:55)
[2024-05-31] VITALS (8 sets, daily range): BP systolic 122–149; BP diastolic 69–91; PULSE 106–119; RESP 17–20; TEMP 97.6–97.9; O2SAT 93–99
[2024-05-31 08:46] LABS: Chloride 115 mmol/L (98-107); Potassium 3.4 mmol/L (3.5-5.1); Sodium 150 mmol/L (136-145)
[2024-05-31 08:47] LABS: Anion Gap 16 (5-15); Calcium 9.2 mg/dL (8.7-10.4); Carbon Dioxide 19 mmol/L (20-31)
[2024-05-31 08:52] LABS: BUN/Creatinine Ratio 29.1 (10.0-20.0); Blood Urea Nitrogen 52 mg/dL (9-23); Glucose 70 mg/dL (74-106)
[2024-05-31 10:26] LABS: Basophils # (auto) 0 10 ^3/uL (0-0.2); Eosinophils # (auto) 0 10 ^3/uL (0-0.8); Eosinophils % (auto) 0.2 % (0.0-7.0); Hematocrit 34.2 % (36.0-46.0); Hemoglobin 11.5 g/dL (12.2-16.2); Lymphocytes # (auto) 1.3 10 ^3/uL (0.4-5.4); Mean Corpuscular Hemoglobin 30.1 pg (28.0-32.0); Mean Corpuscular Hgb Conc. 33.4 g/dL (32.0-36.0); Mean Corpuscular Volume 90.1 fL (80.0-100.0); Monocytes # (auto) 0.4 10 ^3/uL (0-1.3); Monocytes % (auto) 4.5 % (0.0-12.0); Neutrophils # (auto) 6.1 10 ^3/uL (1.6-8.6); Neutrophils % (auto) 78.3 % (37.0-80.0); Nucleated Red Blood Cells % 0.1 %; Platelet Count (auto) 166 10^3/uL (140-450); Red Cell Distribution Width 16.5 % (11.8-14.3); White Blood Cell 7.8 10^3/uL (4.4-10.8)
[2024-05-31] MEDS: POTASSIUM CHLORIDE 40 MEQ in D5W 5% 1,000 ML IV SCH (11:48)
[2024-06-01] VITALS (9 sets, daily range): BP systolic 137–165; BP diastolic 83–99; PULSE 101–121; RESP 16–20; TEMP 97.4–98.1; O2SAT 93–97
[2024-06-01] MEDS: D5W/SOD CHL 0.9%/KCL 40MEQ 1,000 ML IV ONE (04:21)
[2024-06-01 05:36] LABS: Calcium 9.4 mg/dL (8.7-10.4); Chloride 116 mmol/L (98-107); Potassium 3.5 mmol/L (3.5-5.1); Sodium 150 mmol/L (136-145)
[2024-06-01 05:37] LABS: Anion Gap 16 (5-15); Carbon Dioxide 18 mmol/L (20-31)
[2024-06-01 05:42] LABS: BUN/Creatinine Ratio 30.6 (10.0-20.0); Blood Urea Nitrogen 53 mg/dL (9-23); Glucose 112 mg/dL (74-106)
[2024-06-02] VITALS (62 sets, daily range): BP systolic 60–163; BP diastolic 33–102; PULSE 116–180; RESP 17–38; TEMP 97.4–99.2; O2SAT 81–100
[2024-06-02] MEDS: dilTIAZem 25 MG/5 ML VIAL IV ONE ×2 (06:58→07:19)
[2024-06-02] MEDS: SODIUM CHLORIDE 0.9% 1,000 ML IV ONE ×2 (07:00→16:39)
[2024-06-02 08:47] LABS: Alanine Aminotransferase 12 U/L (7-40); Alkaline Phosphatase 102 U/L (46-116); Anion Gap 20 (5-15); Aspartate Aminotransferase 27 U/L (13-40); BUN/Creatinine Ratio 30.6 (10.0-20.0); Blood Urea Nitrogen 56 mg/dL (9-23); Calcium 8.7 mg/dL (8.7-10.4); Carbon Dioxide 14 mmol/L (20-31); Chloride 119 mmol/L (98-107); Glucose 99 mg/dL (74-106); Potassium 3.8 mmol/L (3.5-5.1); Sodium 153 mmol/L (136-145)
[2024-06-02 08:48] LABS: Bilirubin, Total 0.7 mg/dL (0.2-1.0); Total Protein 5.3 g/dL (5.7-8.2)
[2024-06-02] MEDS: SODIUM BICARB 8.4% 50Meq/50ml SYR Vial IV ONE (09:16)
[2024-06-02 10:15] LABS: Hematocrit 39.8 % (36.0-46.0); Hemoglobin 13.1 g/dL (12.2-16.2); Mean Corpuscular Hemoglobin 29.3 pg (28.0-32.0); Mean Corpuscular Hgb Conc. 32.8 g/dL (32.0-36.0); Mean Corpuscular Volume 89.5 fL (80.0-100.0); Platelet Count (auto) 103 10^3/uL (140-450); Red Blood Cells 4.45 10^6/uL (4.0-5.20); Red Cell Distribution Width 16.6 % (11.8-14.3); White Blood Cell 2.2 10^3/uL (4.4-10.8)
[2024-06-02 10:18] LABS: Basophils % (manual) 0 (0.0-2.0); Blast Cells 0; Eosinophils % (manual) 0 (0-7); Metamyelocytes % 0; Myelocytes % 0; Promyelocytes % 0; Reactive Lymphocytes 0
[2024-06-02] MEDS ORDERED: SODIUM BICARB 50mEq/50ml Vial 75 ML in SOD CHL 0.45% 1,000 ML IV SCH (11:15)
[2024-06-02 11:40] LABS: Base Excess -6.7 mmol/L (-2.0-3.0)
[2024-06-02] MEDS ORDERED: D5W 5% 1,000 ML IV SCH (12:00)
[2024-06-02] MEDS: D5W 5% 1,000 ML IV SCH (12:15)
[2024-06-02 12:17] LABS: Band Neutrophils % (manual) 6; Lymphocytes % (manual) 29 (10.0-50.0); Monocytes % (manual) 5 (0-12)
[2024-06-02 12:18] LABS: Platelet Estimate Decreased
[2024-06-02] MEDS: ETOMIDATE (2MG/ML) 20ML VIAL IV ONE ×2 (13:08→13:09)
[2024-06-02] MEDS: ROCURONIUM 10MG/ML 10ML VIAL IV ONE ×2 (13:09→13:10)
[2024-06-02] MEDS: NOREPINEPHRINE 8 MG/250ML KIT 250 ML IV ONE (13:17)
[2024-06-02] MEDS: NOREPINEPHRINE 8 MG/250ML KIT 250 ML IV SCH (13:19)
[2024-06-02] MEDS: MIDAZOLAM DRIP 50 mg/50mL 50 ML IV ONE (13:20)
[2024-06-02] MEDS: fentaNYL Drip 2500mCg/250mlNS 250 ML IV SCH (13:45)
[2024-06-02] MEDS: MIDAZOLAM DRIP 50 mg/50mL 50 ML IV SCH (14:11)
[2024-06-02] MEDS: fentaNYL Drip 2500mCg/250mlNS 250 ML IV ONE (14:15)
[2024-06-02 14:51] LABS: Base Excess -12.5 mmol/L (-2.0-3.0)
[2024-06-02 16:15] LABS: Chloride 120 mmol/L (98-107); Potassium 4.6 mmol/L (3.5-5.1); Sodium 152 mmol/L (136-145)
[2024-06-02 16:16] LABS: Anion Gap 16 (5-15); Calcium 8.2 mg/dL (8.7-10.4); Carbon Dioxide 16 mmol/L (20-31)
[2024-06-02 16:21] LABS: Blood Urea Nitrogen 57 mg/dL (9-23); Glucose 187 mg/dL (74-106)
[2024-06-02] MEDS: ALBUMIN 25% 100 ML IV ONE (16:35)
[2024-06-02 16:51] LABS: Base Excess -12.7 mmol/L (-2.0-3.0)
[2024-06-02] MEDS: FUROSEMIDE 100 MG/10ML VIAL IV ONE (17:10)
[2024-06-02 18:31] LABS: Chloride 117 mmol/L (98-107); Potassium 4.4 mmol/L (3.5-5.1); Sodium 151 mmol/L (136-145)
[2024-06-02 18:32] LABS: Anion Gap 19 (5-15); Carbon Dioxide 15 mmol/L (20-31)
[2024-06-02 18:33] LABS: Calcium 8.3 mg/dL (8.7-10.4)
[2024-06-02 18:38] LABS: BUN/Creatinine Ratio 26.4 (10.0-20.0); Blood Urea Nitrogen 58 mg/dL (9-23); Glucose 183 mg/dL (74-106)
[2024-06-02] MEDS: MICAFUNGIN SODIUM 100 MG in SODIUM CHL 0.9% 100 ML IV SCH (20:35)
[2024-06-02] MEDS: LINEZOLID 600MG/300ML 300 ML IV SCH (21:47)
[2024-06-02] MEDS: LACTATED RINGER'S 1,000 ML IV SCH (22:20)
[2024-06-02] MEDS: HYDROCORTISONE SOD SUCC 100 MG/2ML INJ VIAL IV SCH (22:21)
[2024-06-02] MEDS: BUMETANIDE 2.5mg/10ml (0.25 mg/ml) INJ IV ONE (23:39)
[2024-06-03] VITALS (98 sets, daily range): BP systolic 85–139; BP diastolic 54–89; PULSE 76–136; RESP 25–29; TEMP 96.3–98.5; O2SAT 91–99
[2024-06-03] MEDS: ALBUMIN 25% 100 ML IV SCH (01:50)
[2024-06-03 04:33] LABS: Basophils # (auto) 0 10 ^3/uL (0-0.2); Eosinophils # (auto) 0 10 ^3/uL (0-0.8); Monocytes # (auto) 0.1 10 ^3/uL (0-1.3); Nucleated Red Blood Cells % 0.3 %
[2024-06-03 04:37] LABS: Basophils % (auto) 0.2 % (0.0-2.0); Eosinophils % (auto) 0.1 % (0.0-7.0); Hematocrit 32.3 % (36.0-46.0); Hemoglobin 10.4 g/dL (12.2-16.2); Lymphocytes # (auto) 0.8 10 ^3/uL (0.4-5.4); Lymphocytes % (auto) 20.8 % (10.0-50.0); Mean Corpuscular Hgb Conc. 32.3 g/dL (32.0-36.0); Mean Corpuscular Volume 92.6 fL (80.0-100.0); Monocytes % (auto) 3.9 % (0.0-12.0); Neutrophils # (auto) 2.9 10 ^3/uL (1.6-8.6); Red Blood Cells 3.48 10^6/uL (4.0-5.20); Red Cell Distribution Width 16.9 % (11.8-14.3); White Blood Cell 3.8 10^3/uL (4.4-10.8)
[2024-06-03 04:43] LABS: Anion Gap 16 (5-15); Carbon Dioxide 15 mmol/L (20-31); Chloride 118 mmol/L (98-107); Potassium 4.2 mmol/L (3.5-5.1); Sodium 149 mmol/L (136-145)
[2024-06-03 04:44] LABS: Calcium 7.6 mg/dL (8.7-10.4)
[2024-06-03 04:49] LABS: BUN/Creatinine Ratio 24.9 (10.0-20.0); Blood Urea Nitrogen 56 mg/dL (9-23); Glucose 148 mg/dL (74-106)
[2024-06-03 06:05] LABS: Large Platelets FEW; Platelet Count (auto) 66 10^3/uL (140-450); Platelet Estimate Decrea
[2024-06-03 06:28] LABS: Base Excess -12.3 mmol/L (-2.0-3.0)
[2024-06-03] MEDS ORDERED: EPINEPHrine HCL 1 MG/1 ML AMP ONE (07:24)
[2024-06-03] MEDS ORDERED: PHENYLEPHRINE HCL 10 MG/ML VL ONE (07:24)
[2024-06-03] MEDS ORDERED: SODIUM CHLORIDE LOCK 10 ML ONE (07:28)
[2024-06-03] MEDS: BUPIVACAINE HCL 50 ML ONE (08:22)
[2024-06-03] MEDS: dilTIAZem 125mg/125ml BAG KIT 125 ML IV SCH (09:33)
[2024-06-03] MEDS ORDERED: CLINIMIX PER PHARMACY 0 ML IV SCH (11:00)
[2024-06-03] MEDS: BUPIVACAINE HCL 0.25% P/F 10 ML VIAL ONE (11:22)
[2024-06-03] MEDS: LIDOCAINE 1% HCL (LOCAL ANESTH.) INJ 20ML MDV ONE (12:12)
[2024-06-03] MEDS ORDERED: VANCOMYCIN PER PHARMACY 0 MG IV SCH (12:45)
[2024-06-03] MEDS: VANCOMYCIN 1GM/200ML PREMIX 200 ML IV ONE (13:46)
[2024-06-03 15:07] LABS: INR 1.23 (0.9-1.15); Prothrombin Time 12.8 sec (9.3-11.8)
[2024-06-03] MEDS ORDERED: DEXTROSE (50%) 50ML SYRG IV SCH (18:00)
[2024-06-03] MEDS: ACCU-CHEK COMFORT CURVE STRIP VI SCH (21:49)
[2024-06-03] MEDS: AMINO ACID INFUSION IN D10W 1,000 ML IV SCH (21:49)
[2024-06-03] MEDS: InsuLIN REG 1unit/0.01ml Soln (100units/ml) SC SCH (21:52)
[2024-06-04] VITALS (104 sets, daily range): BP systolic 86–112; BP diastolic 51–64; PULSE 74–79; RESP 25–27; TEMP 97.4–98.3; O2SAT 92–97
[2024-06-04 04:12] LABS: Alanine Aminotransferase 12 U/L (7-40); Albumin 3.1 g/dL (3.2-4.8); Alkaline Phosphatase 56 U/L (46-116); Anion Gap 15 (5-15); Aspartate Aminotransferase 31 U/L (13-40); BUN/Creatinine Ratio 24.3 (10.0-20.0); Calcium 7.1 mg/dL (8.7-10.4); Carbon Dioxide 16 mmol/L (20-31); Chloride 115 mmol/L (98-107); Glucose 170 mg/dL (74-106); Magnesium 1.6 mg/dL (1.6-2.6); Potassium 4.6 mmol/L (3.5-5.1); Sodium 146 mmol/L (136-145)
[2024-06-04 04:13] LABS: Phosphorus 3.6 mg/dL (2.4-5.1)
[2024-06-04 04:14] LABS: Bilirubin, Total 0.4 mg/dL (0.2-1.0); Total Protein 4.8 g/dL (5.7-8.2)
[2024-06-04 04:21] LABS: Basophils # (auto) 0 10 ^3/uL (0-0.2); Basophils % (auto) 0.1 % (0.0-2.0); Eosinophils # (auto) 0 10 ^3/uL (0-0.8); Hematocrit 25.4 % (36.0-46.0); Hemoglobin 8.1 g/dL (12.2-16.2); Lymphocytes # (auto) 0.8 10 ^3/uL (0.4-5.4); Lymphocytes % (auto) 18.5 % (10.0-50.0); Mean Corpuscular Hemoglobin 29.6 pg (28.0-32.0); Mean Corpuscular Hgb Conc. 32.1 g/dL (32.0-36.0); Mean Corpuscular Volume 92.2 fL (80.0-100.0); Monocytes # (auto) 0.1 10 ^3/uL (0-1.3); Monocytes % (auto) 2.2 % (0.0-12.0); Neutrophils # (auto) 3.6 10 ^3/uL (1.6-8.6); Neutrophils % (auto) 79.2 % (37.0-80.0); Nucleated Red Blood Cells % 0.3 %; Red Blood Cells 2.75 10^6/uL (4.0-5.20); Red Cell Distribution Width 17.2 % (11.8-14.3); White Blood Cell 4.5 10^3/uL (4.4-10.8)
[2024-06-04 04:33] LABS: Blood Urea Nitrogen 66 mg/dL (9-23)
[2024-06-04 04:50] LABS: Platelet Count (auto) 26 10^3/uL (140-450)
[2024-06-04 04:51] LABS: Large Platelets FEW; Platelet Estimate Decrea
[2024-06-04 07:29] LABS: Base Excess -11.7 mmol/L (-2.0-3.0)
[2024-06-04] MEDS: CALCIUM GLUC 1,000mg/50ml-NS 50 ML IV ONE (13:48)
[2024-06-04] MEDS: LACTATED RINGER'S 1,000 ML IV SCH (14:00)
[2024-06-04] MEDS ORDERED: ALBUMIN 25% 50 ML IV SCH (14:00)
[2024-06-04] MEDS ORDERED: ALBUMIN 25% 50 ML IV ONE (20:00)
[2024-06-04] MEDS: ALBUMIN 25% 50 ML IV SCH (21:29)
[2024-06-04] MEDS: VANCOMYCIN 500 MG in D5W 5% 100 ML IV SCH (23:36)
[2024-06-05] VITALS (113 sets, daily range): BP systolic 90–112; BP diastolic 45–63; PULSE 75–111; RESP 15–32; TEMP 97.9–98.8; O2SAT 93–96
[2024-06-05 04:15] LABS: Basophils # (auto) 0 10 ^3/uL (0-0.2); Eosinophils # (auto) 0 10 ^3/uL (0-0.8); Hemoglobin 7.9 g/dL (12.2-16.2); Lymphocytes # (auto) 1.1 10 ^3/uL (0.4-5.4); Mean Corpuscular Hgb Conc. 31.7 g/dL (32.0-36.0); Monocytes # (auto) 0.1 10 ^3/uL (0-1.3); White Blood Cell 5.8 10^3/uL (4.4-10.8)
[2024-06-05 04:19] LABS: Basophils % (auto) 0.1 % (0.0-2.0); Lymphocytes % (auto) 19.4 % (10.0-50.0); Mean Corpuscular Hemoglobin 29.2 pg (28.0-32.0); Mean Corpuscular Volume 92.2 fL (80.0-100.0); Monocytes % (auto) 2.4 % (0.0-12.0); Neutrophils # (auto) 4.5 10 ^3/uL (1.6-8.6); Neutrophils % (auto) 78.1 % (37.0-80.0); Nucleated Red Blood Cells % 0.2 %; Red Blood Cells 2.71 10^6/uL (4.0-5.20); Red Cell Distribution Width 16.9 % (11.8-14.3)
[2024-06-05 04:28] LABS: Alanine Aminotransferase 10 U/L (7-40); Alkaline Phosphatase 67 U/L (46-116); Anion Gap 19 (5-15); Calcium 7.4 mg/dL (8.7-10.4); Carbon Dioxide 13 mmol/L (20-31); Chloride 110 mmol/L (98-107); Glucose 175 mg/dL (74-106); Magnesium 1.5 mg/dL (1.6-2.6); Potassium 4.7 mmol/L (3.5-5.1); Sodium 142 mmol/L (136-145)
[2024-06-05 04:29] LABS: Albumin 3.6 g/dL (3.2-4.8); Aspartate Aminotransferase 22 U/L (13-40); Bilirubin, Total 0.3 mg/dL (0.2-1.0); Total Protein 5.4 g/dL (5.7-8.2)
[2024-06-05 05:07] LABS: Blood Urea Nitrogen 83 mg/dL (9-23)
[2024-06-05 05:19] LABS: Platelet Count (auto) 27 10^3/uL (140-450)
[2024-06-05 05:20] LABS: Platelet Estimate Decreased
[2024-06-05] MEDS: MAGNESIUM SULFATE 1GM/100ML 100 ML IV ONE ×2 (05:41→12:45)
[2024-06-05 06:21] LABS: Base Excess -13.9 mmol/L (-2.0-3.0)
[2024-06-05] MEDS: CALCIUM GLUC 1,000mg/50ml-NS 50 ML IV SCH (13:56)
[2024-06-06] VITALS (105 sets, daily range): BP systolic 78–133; BP diastolic 53–80; PULSE 83–128; RESP 19–30; TEMP 96.6–99.1; O2SAT 94–99
[2024-06-06 04:20] LABS: Basophils # (auto) 0 10 ^3/uL (0-0.2); Basophils % (auto) 0.1 % (0.0-2.0); Eosinophils # (auto) 0 10 ^3/uL (0-0.8); Eosinophils % (auto) 0.1 % (0.0-7.0); Hematocrit 21.6 % (36.0-46.0); Lymphocytes # (auto) 0.9 10 ^3/uL (0.4-5.4); Lymphocytes % (auto) 24.8 % (10.0-50.0); Mean Corpuscular Hemoglobin 29.8 pg (28.0-32.0); Mean Corpuscular Hgb Conc. 31.4 g/dL (32.0-36.0); Mean Corpuscular Volume 94.9 fL (80.0-100.0); Monocytes # (auto) 0.1 10 ^3/uL (0-1.3); Monocytes % (auto) 2.2 % (0.0-12.0); Neutrophils # (auto) 2.6 10 ^3/uL (1.6-8.6); Neutrophils % (auto) 72.8 % (37.0-80.0); Nucleated Red Blood Cells % 0.1 %; Platelet Count (auto) 21 10^3/uL (140-450); Red Blood Cells 2.27 10^6/uL (4.0-5.20); Red Cell Distribution Width 17.4 % (11.8-14.3); White Blood Cell 3.6 10^3/uL (4.4-10.8)
[2024-06-06 04:24] LABS: Hemoglobin 6.8 g/dL (12.2-16.2)
[2024-06-06 04:26] LABS: Chloride 107 mmol/L (98-107); Potassium 4.9 mmol/L (3.5-5.1); Sodium 139 mmol/L (136-145)
[2024-06-06 04:29] LABS: Anion Gap 21 (5-15); Carbon Dioxide 11 mmol/L (20-31)
[2024-06-06 04:30] LABS: Calcium 7.4 mg/dL (8.7-10.4)
[2024-06-06 04:34] LABS: Glucose 136 mg/dL (74-106)
[2024-06-06 04:35] LABS: Alkaline Phosphatase 73 U/L (46-116); BUN/Creatinine Ratio 25.6 (10.0-20.0); Magnesium 1.8 mg/dL (1.6-2.6)
[2024-06-06 04:36] LABS: Alanine Aminotransferase 12 U/L (7-40); Albumin 3.4 g/dL (3.2-4.8); Aspartate Aminotransferase 33 U/L (13-40)
[2024-06-06 04:37] LABS: Bilirubin, Total 0.3 mg/dL (0.2-1.0); Total Protein 4.9 g/dL (5.7-8.2)
[2024-06-06 04:42] LABS: Blood Urea Nitrogen 91 mg/dL (9-23)
[2024-06-06 05:25] LABS: Platelet Estimate Markedly Decreased
[2024-06-06 06:45] LABS: Base Excess -15.3 mmol/L (-2.0-3.0)
[2024-06-06] MEDS: DOPamine 1600MCG/ML D5W 250 ML IV SCH (11:29)
[2024-06-06] MEDS: SODIUM BICARB 50mEq/50ml Vial 100 ML in SOD CHL 0.45% 1,000 ML IV SCH (12:38)
[2024-06-06 16:50] LABS: Protein, Urine 136.6 mg/dL (1-14)
[2024-06-06 16:52] LABS: Creatinine, Urine 37.76 mg/dL (30.0-125.0); Urine Protein/Creatinine Ratio 3.62
[2024-06-07] VITALS (53 sets, daily range): BP systolic 100–128; BP diastolic 58–75; PULSE 108–125; RESP 14–36; TEMP 97.9–98.6; O2SAT 95–97
[2024-06-07 03:41] LABS: Basophils # (auto) 0 10 ^3/uL (0-0.2); Basophils % (auto) 0.1 % (0.0-2.0); Eosinophils # (auto) 0 10 ^3/uL (0-0.8); Lymphocytes # (auto) 0.7 10 ^3/uL (0.4-5.4); Neutrophils # (auto) 1.4 10 ^3/uL (1.6-8.6); White Blood Cell 2.1 10^3/uL (4.4-10.8)
[2024-06-07 03:44] LABS: Hematocrit 22.8 % (36.0-46.0); Hemoglobin 7.5 g/dL (12.2-16.2); Lymphocytes % (auto) 33.3 % (10.0-50.0); Mean Corpuscular Hemoglobin 29.8 pg (28.0-32.0); Mean Corpuscular Hgb Conc. 32.7 g/dL (32.0-36.0); Monocytes # (auto) 0.1 10 ^3/uL (0-1.3); Monocytes % (auto) 2.4 % (0.0-12.0); Neutrophils % (auto) 64.2 % (37.0-80.0); Red Cell Distribution Width 16.5 % (11.8-14.3)
[2024-06-07 03:58] LABS: Alanine Aminotransferase 23 U/L (7-40); Albumin 3.3 g/dL (3.2-4.8); Alkaline Phosphatase 95 U/L (46-116); Anion Gap 19 (5-15); Aspartate Aminotransferase 75 U/L (13-40); BUN/Creatinine Ratio 29.9 (10.0-20.0); Bilirubin, Total 0.4 mg/dL (0.2-1.0); Calcium 6.8 mg/dL (8.7-10.4); Carbon Dioxide 13 mmol/L (20-31); Chloride 107 mmol/L (98-107); Glucose 125 mg/dL (74-106); Magnesium 1.7 mg/dL (1.6-2.6); Phosphorus 3.3 mg/dL (2.4-5.1); Potassium 4.9 mmol/L (3.5-5.1); Sodium 139 mmol/L (136-145); Total Protein 4.6 g/dL (5.7-8.2)
[2024-06-07 04:24] LABS: Blood Urea Nitrogen 112 mg/dL (9-23)
[2024-06-07 04:46] LABS: Platelet Estimate Markedly Decreased
[2024-06-07 04:47] LABS: Platelet Count (auto) 17 10^3/uL (140-450)
[2024-06-07] MEDS ORDERED: LORazepam 2MG/ML-1ML VIAL IV PRN (13:00)
[2024-06-07] MEDS ORDERED: HYOSCYAMINE SULF 0.125 MG ODT TAB SL PRN (13:00)
[2024-06-07] MEDS ORDERED: ATROPINE SULFATE 1% 2ml EACHEYE PRN (13:00)
[2024-06-07] MEDS: MORPHINE SULFATE INJ 2 MG/ml SYRG IV PRN (13:07)
[2024-06-07] MEDS ORDERED: CALCIUM GLUC 1,000mg/50ml-NS 50 ML IV SCH (14:30)
[2024-06-07] MEDS ORDERED: MEROPENEM 500MG IVPB 50 ML IV SCH (17:00)
== END 2024-06-07 14:45 | DRG 710 ==
LOC: EDBD 12:02 → ER 12:07 → OVERFLOW 19:12 → WEST WING 20:37 → TELE-WESTW 05-27 17:35 → ICU WEST 06-02 10:53
PROVIDERS: ADMIT Student in an Organized Health Care Education/Training Program; ATTEND Student in an Organized Health Care Education/Training Program
PROC: 0D9670Z Drainage of Stomach with Drainage Device, Via Natural or Artificial Opening (ICD-10-PCS; 2024-05-25)
PROC: 0DB98ZX Excision of Duodenum, Via Natural or Artificial Opening Endoscopic, Diagnostic (ICD-10-PCS; 2024-05-27)
PROC: 0DB68ZX Excision of Stomach, Via Natural or Artificial Opening Endoscopic, Diagnostic (ICD-10-PCS; 2024-05-27)
PROC: 0DB48ZX Excision of Esophagogastric Junction, Via Natural or Artificial Opening Endoscopic, Diagnostic (ICD-10-PCS; 2024-05-27)
PROC: 5A1955Z Respiratory Ventilation, Greater than 96 Consecutive Hours (ICD-10-PCS; 2024-06-02)
PROC: 0BH18EZ Insertion of Endotracheal Airway into Trachea, Via Natural or Artificial Opening Endoscopic (ICD-10-PCS; 2024-06-02)
PROC: 02HV33Z Insertion of Infusion Device into Superior Vena Cava, Percutaneous Approach (ICD-10-PCS; 2024-06-02)
PROC: 0W9G0ZZ Drainage of Peritoneal Cavity, Open Approach (ICD-10-PCS; 2024-06-03)
PROC: 0DBU0ZX Excision of Omentum, Open Approach, Diagnostic (ICD-10-PCS; principal; 2024-06-03 07:48)
PROC: 30233R1 Transfusion of Nonautologous Platelets into Peripheral Vein, Percutaneous Approach (ICD-10-PCS; 2024-06-05)
PROC: 30233N1 Transfusion of Nonautologous Red Blood Cells into Peripheral Vein, Percutaneous Approach (ICD-10-PCS; 2024-06-06)
DX: A41.51 Sepsis due to Escherichia coli [E. coli] (principal); J96.01 Acute respiratory failure with hypoxia; R65.21 Severe sepsis with septic shock; N17.0 Acute kidney failure with tubular necrosis; K56.690 Other partial intestinal obstruction; D69.6 Thrombocytopenia, unspecified; C50.912 Malignant neoplasm of unspecified site of left female breast; E87.4 Mixed disorder of acid-base balance; E87.0 Hyperosmolality and hypernatremia; D70.9 Neutropenia, unspecified; C78.6 Secondary malignant neoplasm of retroperitoneum and peritoneum; J90 Pleural effusion, not elsewhere classified; K22.10 Ulcer of esophagus without bleeding; E11.22 Type 2 diabetes mellitus with diabetic chronic kidney disease; I12.9 Hypertensive chronic kidney disease with stage 1 through stage 4 chronic kidney disease, or unspecified chronic kidney disease; J98.11 Atelectasis; K29.70 Gastritis, unspecified, without bleeding; K31.84 Gastroparesis; K44.9 Diaphragmatic hernia without obstruction or gangrene; N18.32 Chronic kidney disease, stage 3b; N39.0 Urinary tract infection, site not specified; E86.0 Dehydration; E11.43 Type 2 diabetes mellitus with diabetic autonomic (poly)neuropathy; M19.042 Primary osteoarthritis, left hand; R50.81 Fever presenting with conditions classified elsewhere; R18.8 Other ascites; D64.9 Anemia, unspecified; Z17.0 Estrogen receptor positive status [ER+]; Z51.5 Encounter for palliative care; Z78.9 Other specified health status
CPT/HCPCS: 36415; 36600; 70450; 71045; 71250; 74018; 74176; 74250; 80048; 80053; 80202; 81001; 82570; 82805; 82962; 83605; 83615; 83690; 83735; 84100; 84156; 84300; 84484; 84702; 85007; 85025; 85027; 85610; 86300; 86850; 86900; 86901; 86920; 87040; 87070; 87077; 87081; 87186; 87205; 93005; 93306; 94002; 94003; 96374; 96375; G0378; J0171; J0692; J2003; J2185; J2248; J2250; J2405; J2470; J2704; J3490; J7060; P9047